=== PATIENT | male | born 1935 | race Caucasian/White ===

== ENCOUNTER 2019-12-28 22:26 | Emergency (ER) | payer MEDICARE, OTHER ==
[2019-12-28] MEDS ORDERED: TRAMADOL HCL 50 MG TABLET PO ONE (23:24)
[2019-12-28] MEDS ORDERED: DIPH/PERTUSS(ACELL)/TETANUS VAC/PF 0.5 ML SYR (>=10YO) IM ONE (23:24)
--- NOTE | 2019-12-29 00:13 | ER Document Report ---
Entered by BRITTA DEL TORO SCRIBE 12/28/19 [id number] Acting as scribe for:GUILLERMINA LE DO ED Fall - General Chief Complaint: Fall Injury Stated Complaint: LEFT LEG PAIN Time Seen by Provider: 12/28/19 23:10 Primary Care Provider: EDWARD MARQUES MD [Primary Care Provider] - Follow up as needed Mode of Arrival: Ambulatory Information source: Patient Notes: This 84 year old male patient with a history of Chrohn' Disease and atrial fibr illation presents to the ED today accompanied by his family with complaints of a LLE pain post mechanical fall that occurred prior to arrival. states that the patient slipped and fell on his left side onto the wood floor in their bedroom. states that the fall was unwitnessed and the patient did not hit any furniture or lose consciousness. notes that the patient is unable to ambulate well and that he had a fall a couple of weeks that produced a couple of bruises to his extremities. reports abrasions on his bilateral arms, bruises near his left eye, and muscle spasms in his lower extremities. Patient also reports pain to his right forearm and left rib. notes that the patient takes x36 medications daily including Plavix, ASA, and Metoprolol. reports that the patient is approximately 50-60% demented. TRAVEL OUTSIDE OF THE [place] IN LAST 30 DAYS: No - HPI Occurred: This afternoon Where: Home Context: Slipped, Lost balance - Mechanical fall - Related data Allergies/Adverse Reactions: sellfish Allergy (Uncoded 12/28/19 23:51) Past Medical History - General Information source: Patient, [facility] Records - Social History Smoking Status: Never Smoker Cigarette use (# per day): No Chew tobacco use (# tins/day): No Smoking Education Provided: No Frequency of alcohol use: None Drug Abuse: None Lives with: Spouse/Significant other Family History: Reviewed & Not Pertinent Patient has suicidal ideation: No Patient has homicidal ideation: No - Past Medical History Cardiac Medical History: Reports: Hx Hypercholesterolemia, Hx Hypertension - no longer on medication Neurological Medical History: Reports: 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, 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, dementia GI Medical History: Reports: Hx Crohn's Disease Psychiatric Medical History: Reports: Hx Dementia Past Surgical History: Reports: Hx Cholecystectomy - 1998 - Immunizations Hx Diphtheria, Pertussis, Tetanus Vaccination: Yes Hx Pneumococcal Vaccination: 07/17/16 Review of Systems - Review of Systems Constitutional: No symptoms reported EENT: No symptoms reported Cardiovascular: No symptoms reported Respiratory: No symptoms reported Gastrointestinal: No symptoms reported Genitourinary: No symptoms reported Male Genitourinary: No symptoms reported Musculoskeletal: See HPI, Other - LLE pain. Left rib pain. Right forearm pain. Skin: See HPI, Other - Bruises and abrasions to RUE and left eye Hematologic/Lymphatic: No symptoms reported Neurological/Psychological: See HPI. denies: Lost consciousness -: Yes All other systems reviewed and negative Physical Exam - Vital signs Vitals: Temp Resp BP Pulse Ox 98 F 15 118/80 94 12/28/19 22:35 12/28/19 22:35 12/28/19 22:35 12/28/19 22:35 Interpretation: Normal - General General appearance: Alert - and awake, Other - Frail, elderly, and chronically ill appearing. - HEENT Head: Normocephalic, Atraumatic Eyes: Normal Pupils: PERRL - Respiratory Respiratory status: No respiratory distress Chest status: Nontender Breath sounds: Normal Chest palpation: Normal - Cardiovascular Rhythm: Irregularly irregular Heart sounds: Normal auscultation Murmur: No - Abdominal Inspection: Obese Distension: No distension Bowel sounds: Normal Tenderness: Nontender - Abdomen soft Organomegaly: No organomegaly - Back Back: Normal, Nontender - Extremities General upper extremity: Other - See Skin. General lower extremity: Tender - Tender to palpate in left anterior thigh. No deformity noted. - Neurological Neuro grossly intact: Yes - Psychological Associated symptoms: Normal affect, Normal mood - Skin Skin Temperature: Warm Skin Moisture: Dry Skin Color: Normal Skin irregularity: other - Multiple bruises and skin tears to left lateral eye, left shoulder, left forearm, right forearm, and right hand dorsally. 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 He injured left leg in a fall. Also struck right face and multiple skin tears. He has blood work that is reassuring and ct and other radiographic studies show no bony fx. They are to get with PCP today to arrange home health. They expressed understanding regarding this as well as that he remains a tremendous fall risk - Vital Signs Vital signs: Temp Pulse Resp BP Pulse Ox 98 F 23 H 103/51 L 95 12/28/19 22:35 12/29/19 03:00 12/29/19 02:02 12/29/19 03:00 - Laboratory Result Diagrams: 12/29/19 01:26 12/29/19 00:40 Laboratory results interpreted by me: 12/29/19 12/29/19 00:40 01:26 WBC 14.0 H Hgb 13.1 L MCH 26.8 L RDW 19.3 H Lymph % (Auto) 11.5 L Absolute Neuts (auto) 11.3 H Seg Neutrophils % 80.6 H Chloride 109 H BUN 26 H - Diagnostic Test Radiology reviewed: Image reviewed, Reports reviewed Discharge - Discharge Clinical Impression: Skin tear, Abrasions of multiple sites, Dementia Fall Qualifiers: Encounter type: initial encounter Qualified Code(s): W19.XXXA - Unspecified fall, initial encounter Condition: Fair Disposition: HOME, SELF-CARE Instructions: Dressing Instructions for Open Wounds ([facility]), Dementia ([facility]), Contusion ([facility]) Additional Instructions: See your doctor in follow up. Call today. Rest. Please return here for any problems or any concerns. Referrals: EDWARD MARQUES MD [Primary Care Provider] - Follow up as needed I personally performed the services described in the documentation, reviewed and edited the documentation which was dictated to the scribe in my presence, and it accurately records my words and actions.
[2019-12-29 01:11] LABS: ALBUMIN 3.8 g/dL (3.5-5.0); ALKALINE PHOSPHATASE 76 U/L (38-126); ANION GAP 8 (5-19); ASPARTATE AMINO TRANSFERASE 55 U/L (17-59); BILIRUBIN,DIRECT 0.1 mg/dL (0.0-0.4); BILIRUBIN,TOTAL 0.7 mg/dL (0.2-1.3); BLOOD UREA NITROGEN 26 mg/dL (7-20); CALCIUM 8.9 mg/dL (8.4-10.2); CARBON DIOXIDE 23 mmol/L (22-30); CHLORIDE 109 mmol/L (98-107); GLUCOSE 107 mg/dL (75-110); POTASSIUM 4.4 mmol/L (3.6-5.0); TOTAL PROTEIN 6.5 g/dL (6.3-8.2)
[2019-12-29 01:35] LABS: ABSOLUTE BASOPHILS # (AUTO) 0.1 10^3/uL (0.0-0.2); ABSOLUTE EOSINOPHILS # (AUTO) 0.1 10^3/uL (0.0-0.6); ABSOLUTE LYMPHOCYTES (AUTO) 1.6 10^3/uL (0.5-4.7); ABSOLUTE NEUT (AUTO) 11.3 10^3/uL (1.7-8.2); BASOPHILS % (AUTO) 0.4 % (0-2); EOSINOPHILS % (AUTO) 0.5 % (0-6); HEMATOCRIT 40.4 % (37.9-51.0); HEMOGLOBIN 13.1 g/dL (13.5-17.0); LYMPHOCYTES % (AUTO) 11.5 % (13-45); MEAN CORPUSCULAR HEMOGLOBIN 26.8 pg (27.0-33.4); MEAN CORPUSCULAR HGB CONC 32.3 g/dL (32.0-36.0); MEAN CORPUSCULAR VOLUME 83 fl (80-97); PLATELET COUNT 156 10^3/uL (150-450); RED BLOOD COUNT 4.87 10^6/uL (4.35-5.55); RED CELL DISTRIBUTION WIDTH 19.3 % (11.5-14.0); SEGMENTED NEUTROPHILS % (AUTO) 80.6 % (42-78); TOTAL CELLS COUNTED % (AUTO) 100 %
--- NOTE | 2019-12-29 01:38 | RADIOLOGY REPORT (SQ) ---
EXAM DESCRIPTION: XR CHEST 1 VIEW COMPLETED DATE/TME: 12/29/2019 00:01 CLINICAL HISTORY: 84 years, Male, fall COMPARISON: 08/13/2016 NUMBER OF VIEWS: One TECHNIQUE: AP view of the chest LIMITATIONS: None. FINDINGS: There is a retrocardiac airspace opacity. The heart is enlarged. There are atherosclerotic calcifications of the aorta. There is no pneumothorax or pleural effusion. There is no acute fracture. Surgical clips are noted along the right upper quadrant. IMPRESSION: Retrocardiac airspace opacity, which may represent atelectasis or pneumonia. copyright 2010 [email or web address]- All Rights Reserved
--- NOTE | 2019-12-29 01:42 | RADIOLOGY REPORT (SQ) ---
EXAM DESCRIPTION: CT head without contrast CLINICAL HISTORY: 84 years Male, fall COMPARISON: None. TECHNIQUE: Axial images of the head were performed without the use of intravenous contrast, with sagittal and coronal reformatted images. This exam was performed according to our departmental dose-optimization program which includes use of Automated Exposure Control, adjustment of the mA and/or kV according to patient size and/or use of iterative reconstruction technique. FINDINGS: No skull fracture. No intracranial bleed. No evidence of acute infarct. No evidence of mass or hydrocephalus. There is cortical atrophy and chronic white matter ischemic changes. There are bilateral old lacunar infarcts. IMPRESSION: No skull fracture. No intracranial bleed.
--- NOTE | 2019-12-29 01:50 | RADIOLOGY REPORT (SQ) ---
EXAM DESCRIPTION: XR FOREARM 2 VIEWS COMPLETED DATE/TME: 12/29/2019 00:02 CLINICAL HISTORY: 84 years, Male, htn pain COMPARISON: None. NUMBER OF VIEWS: 2 TECHNIQUE: LIMITATIONS: None. FINDINGS: No acute displaced fracture. Osteoporosis. Osteoarthritis. Vascular calcification IMPRESSION: No acute bony injury is seen to the forearm copyright 2011 [employer]- All Rights Reserved
--- NOTE | 2019-12-29 01:50 | RADIOLOGY REPORT (SQ) ---
EXAM DESCRIPTION: XR FEMUR 2 VIEWS, XR HIP 2 OR MORE VIEWS COMPLETED DATE/TME: 12/28/2019 23:56 (accession [id number]), 12/28/2019 23:55 (accession [id number]) CLINICAL HISTORY: 84 years Male, fall COMPARISON: None. Findings: Possible impaction deformity of the posterior aspect of the left tibial plateau, indeterminate age. Bones, joints, and soft tissues of the LEFT XR FEMUR 2 VIEWS, XR HIP 2 OR MORE VIEWS appear otherwise unremarkable. Atherosclerotic vascular disease. Osteoarthritis. IMPRESSION: Possible impaction deformity of the posterior aspect of the left tibial plateau, indeterminate age. Consider dedicated left knee radiographs/CT.
--- NOTE | 2019-12-29 01:50 | RADIOLOGY REPORT (SQ) ---
EXAM DESCRIPTION: XR FEMUR 2 VIEWS, XR HIP 2 OR MORE VIEWS COMPLETED DATE/TME: 12/28/2019 23:56 (accession [id number]), 12/28/2019 23:55 (accession [id number]) CLINICAL HISTORY: 84 years Male, fall COMPARISON: None. Findings: Possible impaction deformity of the posterior aspect of the left tibial plateau, indeterminate age. Bones, joints, and soft tissues of the LEFT XR FEMUR 2 VIEWS, XR HIP 2 OR MORE VIEWS appear otherwise unremarkable. Atherosclerotic vascular disease. Osteoarthritis. IMPRESSION: Possible impaction deformity of the posterior aspect of the left tibial plateau, indeterminate age. Consider dedicated left knee radiographs/CT.
--- NOTE | 2019-12-29 03:44 | RADIOLOGY REPORT (SQ) ---
EXAM DESCRIPTION: CT LOWER EXTREMITY WITHOUT IV CONTRAST COMPLETED DATE/TME: 12/29/2019 02:06 CLINICAL HISTORY: Pain. 84 years Male, Left knee irregularity ? tibial plat fx COMPARISON: Same day, CR. Technique: No IV contrast. Coronal and sagittal reformat. 3d reconstruction. This exam was performed according to our departmental dose-optimization program, which includes automated exposure control, adjustment of the mA and/or kV according to patient size and/or use of iterative reconstruction technique. [facility]: Dose Right [facility]: CareDose [facility]: Dose Right [facility]: Teradose 4D [facility]: [employer] LIMITATIONS: None Findings: Moderate left knee effusion. 1.0 cm ossicular loose body at the posterior aspect of the intercondylar notch. 1.0 cm impaction deformity posterior medial aspect of the tibial plateau appears chronic, image 35, series 301. Bony demineralization. Atherosclerosis. Bones, joints, and soft tissues of the CT LEFT KNEE/LOWER EXTREMITY WITHOUT IV CONTRAST appear otherwise unremarkable. IMPRESSION: Moderate left knee effusion. 1.0 cm ossicular loose body at the posterior aspect of the intercondylar notch. 1.0 cm impaction deformity posterior medial aspect of the tibial plateau appears chronic, image 35, series 301.
[2019-12-29] MEDS ORDERED: TRAMADOL HCL 50 MG TABLET PO ONE (05:29)
[2019-12-29 08:18] VITALS: BP 117/69
== END 2019-12-29 08:48 | disposition home or self-care (01) ==
LOC: ER 22:26
DX: S40.812A Abrasion of left upper arm, initial encounter (principal); S40.811A Abrasion of right upper arm, initial encounter; S00.12XA Contusion of left eyelid and periocular area, initial encounter; M79.605 Pain in left leg; W01.0XXA Fall on same level from slipping, tripping and stumbling without subsequent striking against object, initial encounter; Y92.003 Bedroom of unspecified non-institutional (private) residence as the place of occurrence of the external cause; F03.90 Unspecified dementia, unspecified severity, without behavioral disturbance, psychotic disturbance, mood disturbance, and anxiety; I48.91 Unspecified atrial fibrillation; E78.00 Pure hypercholesterolemia, unspecified; Z86.73 Personal history of transient ischemic attack (TIA), and cerebral infarction without residual deficits; Z90.49 Acquired absence of other specified parts of digestive tract
CPT/HCPCS: 99285; 90471; 36415; 85025; 80053; 71045; 73552; 73090; 73502; 70450; 73700; 90715; A9270 ×2